=== PATIENT | female | born 1980 | race Caucasian/White ===

== ENCOUNTER 2024-05-23 18:19 | Observation (INO) | payer BC, OTHER ==
[~2024-05-23] VITALS: Ht 157.5 cm; Wt 54.1 kg
[2024-05-23 18:19] VITALS: BP 129/54; PULSE 95; RESP 18; TEMP 97.7; O2SAT 98
[2024-05-23 18:43] LABS: BASOPHIL % 0.3 % (0.1-1.2); EOSINOPHIL % 0.1 % (0.0-5.0); HEMATOCRIT(ML) 43.5 % (36.0-46.0); HEMOGLOBIN 14.5 g/dL (12.0-15.0); LYMPHOCYTES # 1.34 10^3/uL1 (1.0-4.8); LYMPHOCYTES % 12.9 % (24.0-44.0); MEAN CORP HGB 30.9 pg (26-34); MEAN CORP HGB CONCENTRATION 33.3 g/dL (33-36.5); MEAN CORP VOLUME 92.6 fL (78-100); MONOCYTES # 0.6 10^3/uL (0.3-0.8); MONOCYTES % 6.1 % (5.0-12.0); NEUTROPHIL # 8.3 10^3/uL (1.8-7.7); NEUTROPHILS % 80.5 % (41.0-85.0); PLATELET COUNT 230 10^3/uL (150-400); RED CELL DISTRIBUTION WIDTH 12.7 % (11.5-14.5); WHITE BLOOD CELL 10.4 10^3/uL (4.5-11.0)
[2024-05-23 18:46] LABS: +ADD MANUAL DIFF(NO CHRG) NO
[2024-05-23 19:03] LABS: ALBUMIN(ML) 4.4 g/dL (3.4-5.0); ALBUMIN/GLOBULIN RATIO 1.375; ANION GAP 10.9; BUN/CREATININE RATIO 11.11 (10.0-20.0); CALCIUM 8.7 mg/dL (8.4-10.5); CARBON DIOXIDE 25.6 mmol/L (20.0-32); CREATININE SERUM 0.99 mg/dL (0.59-1.40); EST GFR, NON-AA 60.9 (>/=60); POTASSIUM 4.5 mmol/L (3.6-5.2)
[2024-05-23 19:05] LABS: INR 0.9; PROTHROMBIN PROTIME 9.3 SEC (9.3-11.6)
[2024-05-23 19:20] VITALS: BP 117/65; PULSE 82; RESP 18; O2SAT 96
[2024-05-23 20:06] LABS: LEUKOCYTE ESTERASE ,URINE NEGATIVE (NEGATIVE); NITRATE,URINE NEGATIVE (NEGATIVE); UROBILINOGEN,URINE 0.2 E.U./dL (0.2)
[2024-05-23 20:08] LABS: APPEARANCE,URINE CLOUDY; UA COLOR YELLOW
[2024-05-23 20:17] LABS: UAMPH METHAMP(SCRN) NEGATIVE (co1000ng/mL); UR MDMA (ECSTASY) SCRN NEGATIVE (c/o300ng/mL); UR METHADONE SCRN NEGATIVE (c/o300ng/mL); UR OPIATE SCRN NEGATIVE (c/o300ng/mL); UR PHENCYCLIDINE (PCP) SCRN NEGATIVE (c/o 25ng/mL); UR TETRAHYDROCANNABINOL SCRN NEGATIVE (c/o 50ng/mL)
[2024-05-23 20:28] VITALS: BP 114/68; PULSE 77; RESP 18; O2SAT 98
[2024-05-23 21:27] VITALS: BP 118/65; PULSE 78; RESP 18; O2SAT 98
[2024-05-23 22:00] VITALS: BP 111/70; PULSE 70; RESP 16; TEMP 99.1; O2SAT 99
[2024-05-23] MEDS ORDERED: [UNRECOGNIZED DRUG - OTHER] INH (22:23)
[2024-05-23] MEDS ORDERED: TYLENOL ONE (22:46)
[2024-05-23] MEDS: TYLENOL PO ONE (22:50)
[2024-05-23] MEDS ORDERED: TYLENOL PO ONE (23:00)
[2024-05-24] VITALS: BP 112/62; PULSE 60; RESP 18; TEMP 98.9; O2SAT 95
[2024-05-24 04:11] VITALS: BP 101/63; PULSE 56; RESP 16; TEMP 98.5; O2SAT 95
[2024-05-24 07:44] VITALS: BP 102/60; PULSE 60; RESP 17; TEMP 98.2; O2SAT 97
[2024-05-24] MEDS ORDERED: TYLENOL ONE (11:21)
[2024-05-24] MEDS: TYLENOL PO PRN (11:23)
[2024-05-24 11:49] VITALS: BP 108/66; PULSE 60; RESP 18; TEMP 98.2; O2SAT 98
[2024-05-24 16:41] VITALS: BP 109/70; PULSE 64; RESP 18; TEMP 98.9; O2SAT 96
[2024-05-24 18:47] LABS: ABG OX -sO2 98.5 % (94.0-98.0); ABG PH 7.486 (7.350-7.450); BE(B) -2.7 mmol/L (-2.0-3.0); HCO3act 19.2 mmol/L (21.0-28.0); pO2 117.5 mmHg (83.0-108.0); tHb 13.3 g/dL (12.0-16.0)
[2024-05-24 19:00] VITALS: BP 105/67; PULSE 79; RESP 18; TEMP 97.6; O2SAT 97
[2024-05-24 19:12] LABS: BASOPHIL % 0.4 % (0.1-1.2); EOSINOPHIL % 0.6 % (0.0-5.0); HEMATOCRIT(ML) 39.2 % (36.0-46.0); HEMOGLOBIN 13.2 g/dL (12.0-15.0); LYMPHOCYTES # 1.43 10^3/uL1 (1.0-4.8); LYMPHOCYTES % 27.8 % (24.0-44.0); MEAN CORP HGB 31.7 pg (26-34); MEAN CORP HGB CONCENTRATION 33.7 g/dL (33-36.5); MEAN CORP VOLUME 94.2 fL (78-100); MONOCYTES # 0.3 10^3/uL (0.3-0.8); MONOCYTES % 5.6 % (5.0-12.0); NEUTROPHIL # 3.4 10^3/uL (1.8-7.7); NEUTROPHILS % 65.6 % (41.0-85.0); PLATELET COUNT 231 10^3/uL (150-400); RED BLOOD CELL 4.16 10^6/uL (4.00-5.20); RED CELL DISTRIBUTION WIDTH 12.8 % (11.5-14.5); WHITE BLOOD CELL 5.2 10^3/uL (4.5-11.0)
[2024-05-24 19:14] LABS: +ADD MANUAL DIFF(NO CHRG) NO
[2024-05-24 19:36] LABS: ALBUMIN(ML) 3.6 g/dL (3.4-5.0); ANION GAP 9.6; BUN/CREATININE RATIO 12.63 (10.0-20.0); CARBON DIOXIDE 26.3 mmol/L (20.0-32); CREATININE SERUM 0.95 mg/dL (0.59-1.40); EST GFR, NON-AA 63.9 (>/=60); POTASSIUM 3.9 mmol/L (3.6-5.2)
[2024-05-24 19:37] LABS: ALBUMIN/GLOBULIN RATIO 1.285; CALCIUM 8.6 mg/dL (8.4-10.5); LDL/HDL RATIO 1.5
[2024-05-25] VITALS: BP 95/50; PULSE 68; RESP 17; TEMP 97.3; O2SAT 98
[2024-05-25 04:00] VITALS: BP 97/61; PULSE 53; RESP 16; TEMP 97.3; O2SAT 96
[2024-05-25 05:27] LABS: LEUKOCYTE ESTERASE ,URINE NEGATIVE (NEGATIVE); NITRATE,URINE NEGATIVE (NEGATIVE); PH,URINE 6.5 (4.5-8.0); UROBILINOGEN,URINE 0.2 E.U./dL (0.2)
[2024-05-25 05:35] LABS: UAMPH METHAMP(SCRN) NEGATIVE (co1000ng/mL); UR MDMA (ECSTASY) SCRN NEGATIVE (c/o300ng/mL); UR METHADONE SCRN NEGATIVE (c/o300ng/mL); UR OPIATE SCRN NEGATIVE (c/o300ng/mL); UR PHENCYCLIDINE (PCP) SCRN NEGATIVE (c/o 25ng/mL); UR TETRAHYDROCANNABINOL SCRN NEGATIVE (c/o 50ng/mL)
[2024-05-25 05:37] LABS: APPEARANCE,URINE CLEAR; UA COLOR YELLOW
[2024-05-25 09:29] VITALS: BP 101/60; PULSE 68; RESP 18; TEMP 98.1; O2SAT 97
[2024-05-25 12:38] VITALS: BP 102/56; PULSE 83; RESP 20; TEMP 98.9; O2SAT 97
[2024-05-25 16:32] VITALS: BP 110/68; PULSE 52; RESP 20; TEMP 98.9; O2SAT 99
[2024-05-25 19:00] VITALS: BP 101/68; PULSE 72; RESP 17; TEMP 97.6; O2SAT 98
[2024-05-26] VITALS (7 sets, daily range): BP systolic 103–116; BP diastolic 61–75; PULSE 62–77; RESP 16–20; TEMP 97.3–98.6; O2SAT 92–98
[2024-05-26 08:06] LABS: BASOPHIL % 0.5 % (0.1-1.2); EOSINOPHIL # 0.1 10^3/uL (0.0-0.2); EOSINOPHIL % 1.4 % (0.0-5.0); HEMATOCRIT(ML) 40.8 % (36.0-46.0); HEMOGLOBIN 13.7 g/dL (12.0-15.0); LYMPHOCYTES # 2.01 10^3/uL1 (1.0-4.8); LYMPHOCYTES % 35.8 % (24.0-44.0); MEAN CORP HGB 31.1 pg (26-34); MEAN CORP HGB CONCENTRATION 33.6 g/dL (33-36.5); MEAN CORP VOLUME 92.5 fL (78-100); MONOCYTES # 0.4 10^3/uL (0.3-0.8); MONOCYTES % 6.8 % (5.0-12.0); NEUTROPHIL # 3.1 10^3/uL (1.8-7.7); NEUTROPHILS % 55.5 % (41.0-85.0); PLATELET COUNT 222 10^3/uL (150-400); RED BLOOD CELL 4.41 10^6/uL (4.00-5.20); RED CELL DISTRIBUTION WIDTH 12.5 % (11.5-14.5); WHITE BLOOD CELL 5.6 10^3/uL (4.5-11.0)
[2024-05-26 08:07] LABS: +ADD MANUAL DIFF(NO CHRG) NO
[2024-05-26 08:16] LABS: ANION GAP 11.9; BUN/CREATININE RATIO 19.51 (10.0-20.0); CALCIUM 8.7 mg/dL (8.4-10.5); CARBON DIOXIDE 26.5 mmol/L (20.0-32); CREATININE SERUM 0.82 mg/dL (0.59-1.40); EST GFR, NON-AA 75.7 (>/=60); POTASSIUM 4.4 mmol/L (3.6-5.2)
[2024-05-27 03:57] VITALS: BP 102/55; PULSE 60; RESP 16; TEMP 97.7; O2SAT 97
[2024-05-27 06:03] LABS: HEMATOCRIT(ML) 42.8 % (36.0-46.0); HEMOGLOBIN 14.4 g/dL (12.0-15.0); MEAN CORP HGB 31.3 pg (26-34); MEAN CORP HGB CONCENTRATION 33.6 g/dL (33-36.5); RED BLOOD CELL 4.6 10^6/uL (4.00-5.20); RED CELL DISTRIBUTION WIDTH 12.5 % (11.5-14.5); WHITE BLOOD CELL 6.1 10^3/uL (4.5-11.0)
[2024-05-27 06:13] LABS: ANION GAP 11.3; BUN/CREATININE RATIO 19.35 (10.0-20.0); CREATININE SERUM 0.93 mg/dL (0.59-1.40); EST GFR, NON-AA 65.5 (>/=60); POTASSIUM 4.3 mmol/L (3.6-5.2)
[2024-05-27 07:31] VITALS: BP 102/62; PULSE 66; RESP 18; TEMP 98.6; O2SAT 96
[2024-05-27 11:52] VITALS: BP 107/73; PULSE 83; RESP 18; TEMP 97.3; O2SAT 8
[2024-05-27 15:03] VITALS: BP 107/73; PULSE 83; RESP 18; TEMP 97.3; O2SAT 8
== END 2024-05-27 14:58 | disposition home or self-care (01) ==
LOC: EDBD 18:19 → ER 18:19 → OBS 21:15 → EDBEDREQ 21:24 → EDBEDREQSVC 21:24 → OBS 21:40
PROVIDERS: ADMIT Family Medicine; ATTEND Student in an Organized Health Care Education/Training Program
DX: E16.2 Hypoglycemia, unspecified (principal); R55 Syncope and collapse; R42 Dizziness and giddiness; R56.9 Unspecified convulsions; R60.0 Localized edema; Z88.0 Allergy status to penicillin; Z88.1 Allergy status to other antibiotic agents; Z88.5 Allergy status to narcotic agent; Z90.710 Acquired absence of both cervix and uterus; Z98.890 Other specified postprocedural states; Z79.899 Other long term (current) drug therapy; Z86.2 Personal history of diseases of the blood and blood-forming organs and certain disorders involving the immune mechanism; Z88.6 Allergy status to analgesic agent; Z88.8 Allergy status to other drugs, medicaments and biological substances
CPT/HCPCS: 99284; 87086; 71045; 70450; 80053 ×2; 85025 ×3; 82948 ×23; 36415 ×4; 85379; 84484 ×2; 80307 ×2; 82077; 81001; 85610; 85730; 84703; 93005; 70553; 84681; 80061; 82140; 84443; 83036; 85651; 83525; 82803; 36600; 97165; 97535; 81003; 72125; 80048 ×2; 83735 ×2; 93306; 93880; 85027; 83690; G0378 ×88; J3490 ×3; A9579